=== PATIENT | male | born 1955 | race Caucasian/White ===

== ENCOUNTER → 2017-08-09 | Outpatient (CLI) | payer OTHER | LOC: GIMAGING 12:38 | PROVIDERS: ATTEND Nurse Practitioner Acute Care | DX: M79.604 Pain in right leg (principal); V87.8XXA Person injured in other specified noncollision transport accidents involving motor vehicle (traffic), initial encounter | CPT/HCPCS: 73590-PO ==

== ENCOUNTER 2017-08-19 18:45 | Emergency (ER) | payer OTHER ==
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
[2017-08-19 19:32] LABS: PLATELET COUNT 217 10^3/uL (150-400)
[2017-08-19] MEDS ORDERED: ONDANSETRON 4 MG/2 ML VIAL IVP PRN (22:20)
[2017-08-19] MEDS ORDERED: ACETAMINOPHEN 325 MG TAB PO PRN (22:20)
[2017-08-19] MEDS ORDERED: ONDANSETRON DISINTEGRATING 4 MG TAB PO PRN (22:20)
[2017-08-19] MEDS ORDERED: oxyCODONE IR 5 MG TAB PO PRN (22:20)
[2017-08-19 23:24] VITALS: BP 142/95
[2017-08-20] MEDS ORDERED: ENOXAPARIN 40 MG/0.4 ML SYR SC SCH (09:00)
== END 2017-08-19 23:24 | disposition home or self-care (01) ==
LOC: UNDOADMOB 21:29
DX: L03.116 Cellulitis of left lower limb (principal); S70 Superficial injury of hip and thigh
CPT/HCPCS: 96365; J0690